=== PATIENT | male | born 1960 | race Caucasian/White ===

== ENCOUNTER → 2016-10-20 | Outpatient (CLI) | payer MEDICARE, OTHER ==
[2016-10-20 11:48] LABS: BASO % 0.5 % (0.0-1.0); EOS # 0.2 K/mm3 (0.0-0.50); EOS % 2.1 % (0.0-3.0); LARGE UNSTAINED CELL # 0.1 K/mm3 (0.0-0.4); LARGE UNSTAINED CELL % 1.5 % (0.0-4.0); LYMPH # 1.7 K/mm3 (1.5-4.5); LYMPH % 20.4 % (24.0-44.0); MEAN CORPUSCULAR HEMOGLOBIN 30.2 pg (27.0-33.0); MEAN CORPUSCULAR HGB CONC 33.6 g/dl (32.0-36.5); MEAN CORPUSCULAR VOLUME 89.9 fl (80.0-96.0); MONO # 0.6 K/mm3 (0.0-0.8); MONO % 7.3 % (0.0-5.0); NEUTROPHILS # 5.7 K/mm3 (1.8-7.7); NEUTROPHILS % 68.3 % (36.0-66.0); PLATELET COUNT, AUTOMATED 237 k/mm3 (150-450); RED CELL DISTRIBUTION WIDTH 12.9 % (11.5-14.5); WHITE BLOOD COUNT 8.4 K/mm3 (4.0-10.0)
[2016-10-20 11:57] LABS: ALBUMIN 3.4 GM/DL (3.2-5.2); ALKALINE PHOSPHATASE 72 U/L (45-117); ALT/SGPT 25 U/L (12-78); ANION GAP 8 MEQ/L (8-16); AST/SGOT 19 U/L (15-37); BILIRUBIN,TOTAL 0.4 MG/DL (0.2-1.0); BLOOD UREA NITROGEN 12 MG/DL (7-18); CALCIUM LEVEL 9.1 MG/DL (8.5-10.1); CARBON DIOXIDE LEVEL 30 MEQ/L (21-32); CHLORIDE LEVEL 104 MEQ/L (98-107); CREATININE FOR GFR 0.89 MG/DL (0.70-1.30); GLOMERULAR FILTRATION RATE > 60.0 (>56); GLUCOSE, FASTING 106 MG/DL (70-105); POTASSIUM SERUM 3.7 MEQ/L (3.5-5.1); SODIUM LEVEL 142 MEQ/L (136-145); TOTAL PROTEIN 6.8 GM/DL (6.4-8.2); URIC ACID 5.3 MG/DL (3.5-7.2)
--- NOTE | 2016-10-20 15:49 | REP ---
Bilateral SI joint series: History: Primary osteoarthritis of the knee. Findings: Four views of the sacrum and SI joints show no evidence of erosive change, narrowing or spur formation. No ankylosis is seen. Bony sacrum is intact. There is mild vascular calcification. No significant change from September 07, 2008. Impression: Negative SI joint series. Signed by Todd Shah MD 10/20/2016 05:01 P
--- NOTE | 2016-10-20 15:50 | REP ---
Cervical spine series: Eight views. History: Primary osteoarthritis of the knee. Findings: Lateral views done in flexion/extension and neutral position show preserved vertebral body heights and normal alignment. No subluxation or instability is seen. Swimmer's lateral view shows no additional abnormality. Prevertebral soft tissues are not widened. AP and open mouth odontoid views show only mild vascular calcification along the course of the carotid arteries. Bilateral oblique radiographs demonstrate intact neural foramina bilaterally at each cervical level and normally aligned facets. Impression: Negative cervical spine radiographs. Signed by Todd Shah MD 10/20/2016 05:01 P
--- NOTE | 2016-10-20 15:51 | REP ---
Bilateral hip study: Four views. History: Bilateral osteoarthritis of the knee. Findings: AP and frog-leg views of the right hip and AP and frog-leg views of the left hip are presented. Femoral heads are smooth and rounded bilaterally. Hip joint spaces are preserved. Periarticular soft tissues are unremarkable. No bony pelvic lesion is seen. Impression: Negative bilateral hip study. Signed by Todd Shah MD 10/20/2016 05:01 P
--- NOTE | 2016-10-20 15:58 | REP ---
Lumbar spine series: Five views. History: Bilateral primary osteoarthritis of the knee. Comparison study September 07, 2008. Findings: Lateral view shows preserved vertebral body heights. Alignment is normal. There is discogenic spurring and mild disc space narrowing at L1-2, L2-3, L3-4, and L4-5. This is slightly more prominent than on the prior study, but not new. There is mild vascular calcification in a normal caliber aorta. Pedicles and posterior elements are intact. Psoas margins are symmetric. Sacrum and SI joints are unremarkable. Impression: Mild diffuse degenerative disc disease slightly more pronounced than on the 2009 prior study. Signed by Todd Shah MD 10/20/2016 05:01 P
== END ==
LOC: M LAB 10:45
PROVIDERS: ATTEND Internal Medicine Rheumatology
DX: M51.36 Other intervertebral disc degeneration, lumbar region (principal); M54.2 Cervicalgia; M54.5 Low back pain; M25.559 Pain in unspecified hip; M17.0 Bilateral primary osteoarthritis of knee; M10.09 Idiopathic gout, multiple sites; N18.3 Chronic kidney disease, stage 3 (moderate); Z79.899 Other long term (current) drug therapy

== ENCOUNTER 2024-01-15 12:11 | Day surgery (SDC) | payer OTHER, MEDICARE ==
[~2024-01-15] VITALS: Ht 172.7 cm; Wt 120.6 kg
[~2024-01-15 12:11] MED LIST: ALBU8.5H; ALLO300T2 PO; ATOR40TA75 PO; CLOP75TA2 PO; FLUT1BLS8; HYDR-3490 PO; ISOS1TAB35 PO; PANT40TA29 PO; PREG100C2 PO; ROPI1TAB73 PO; VALS1TAB67 PO
[2024-01-15] MEDS: NS 1,000 ML IV ONE (13:18)
[2024-01-15] MEDS ORDERED: propofoL 200 MG/20 ML VIAL As Ordered ONE (13:37)
[2024-01-15] MEDS ORDERED: LIDOCAINE 2% 100MG/5ML SDV (FOR ANES.) As Ordered ONE (13:37)
[2024-01-15 14:55] VITALS: BP 135/69; TEMP 97.9; O2SAT 97
== END 2024-01-15 15:05 | disposition home or self-care (01) ==
LOC: M OPP 12:11
PROVIDERS: ATTEND Internal Medicine Gastroenterology
DX: R19.5 Other fecal abnormalities (principal); D12.6 Benign neoplasm of colon, unspecified; K64.8 Other hemorrhoids; R12 Heartburn; G47.9 Sleep disorder, unspecified; I10 Essential (primary) hypertension; Z95.5 Presence of coronary angioplasty implant and graft; Z79.02 Long term (current) use of antithrombotics/antiplatelets; Z79.82 Long term (current) use of aspirin; Z79.51 Long term (current) use of inhaled steroids; Z79.899 Other long term (current) drug therapy; Z91.048 Other nonmedicinal substance allergy status